=== PATIENT | male | born 1955 | race Caucasian/White ===

== ENCOUNTER 2016-09-20 15:46 | Observation (INO) | payer OTHER ==
--- NOTE | ~2016-09-20 | HP ---
Unit #: [id number] #: [id number] Patient: GIOVANY ESTEVES [id number] [facility]. [address] [address] [id number] I MR#: [id number] NAME: GIOVANY ESTEVES. ROOM: 571 Age: 61 Sex: M Admission Date: 09/20/2016 : 1955 Attending Physician: Gustavo Vargas M.D. Primary Care Physician: Juni Hernandez M.D. HISTORY AND PHYSICAL HISTORY OF PRESENT ILLNESS This is a 61-year-old white male who has a history of non-ST elevation myocardial infarction in 2014 where he underwent angioplasty with drug-eluting stents to the distal right coronary artery and left circumflex artery. He is known to have hypertension and hyperlipidemia. He presents to the emergency room with the complaints of chest pain that started two nights ago. He has substernal chest pressure with occasional radiation to his left hand with numbness. He has no associated diaphoresis, nausea or vomiting. His chest pressure occurs intermittently, lasting for 5 to 10 minutes in duration. There are no alleviating or aggravating factors. Chest pain is dissimilar from what he experienced at the time of his myocardial infarction. At that time the chest pressure radiated into his neck, into his elbows. In the emergency room initial troponin is negative. His EKG shows no acute ischemic changes. PAST MEDICAL HISTORY 1. Non-ST elevation myocardial infarction and status post cardiac catheterization 12/27/2014 which shows ejection fraction of 55%. Left main normal. First diagonal branch 30% to 40% stenosis. Proximal circumflex artery 75%. Marginal branch 75%. Second marginal branch 95%. Right coronary artery with 99% stenosis. 2. Status post angioplasty with drug-eluting stent to the distal right coronary artery and left circumflex artery. 3. Hypertension. 4. Hyperlipidemia. 5. Anxiety. 6. BPH with history of hematuria, status post TURP. PAST SURGICAL HISTORY 1. TURP in 2013. 2. Skin cancer excision. 3. Tonsillectomy. 4. Repair of left femoral fracture. SOCIAL HISTORY The patient is single and lives at home alone. 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 He has never smoked. He denies illicit drug and alcohol use. FAMILY HISTORY Father had a myocardial infarction in his 50s but later from lung cancer. Unit #: [id number] #: [id number] Patient: GIOVANY ESTEVES ALLERGIES No known drug allergies. HOME MEDICATIONS 1. Proscar 5 mg daily. 2. Plavix 75 mg daily. 3. Metoprolol tartrate 12.5 mg b.i.d. 4. Bactrim DS 800/160 mg that began on 09/16/2016. 5. Lipitor 80 mg daily. 6. Bupropion HCl 150 mg b.i.d. REVIEW OF SYSTEMS CONSTITUTIONAL: Negative for fever or chills. Reports no weight gain or weight loss. HEENT: No headache, hearing or vision changes or difficulty with swallowing. Negative for dizziness. CARDIOVASCULAR: Has chest pressure described in the HPI. Reports occasional palpitations. No paroxysmal nocturnal dyspnea or orthopnea. No syncope or near syncope. RESPIRATORY: Negative for dyspnea, cough or hemoptysis. GASTROINTESTINAL: No abdominal pain, nausea or vomiting. No constipation or melena. EXTREMITIES: Negative for lower extremity edema. PHYSICAL EXAMINATION VITAL SIGNS: Blood pressure 145/100, heart rate 74, temperature 98.3. GENERAL: This is a pleasant, 61-year-old, well-developed, middle-aged white male who is in no acute distress. NEUROLOGICAL: He is awake, alert and oriented. There are no focal weaknesses. NECK: Trachea is midline. No thyromegaly. No lymphadenopathy. No jugular venous distention. HEART: S1 and S2 heart sounds are normal. No murmurs, rubs or clicks. Regular rate and rhythm. LUNGS: Clear to auscultation without rales, rhonchi or wheezes. ABDOMEN: Soft, nontender, with bowel sounds present. EXTREMITIES: Without leg edema. SKIN: Warm and dry. DIAGNOSTIC STUDIES LABORATORY: Hemoglobin 14.5, hematocrit 43.2, platelet count 455, white count 10.2, sodium 138, potassium 3.9, BUN 12, creatinine 1.4, glucose 95, troponin less than 0.05 x2. IMAGING: Chest x-ray shows no active disease. CARDIOVASCULAR: EKG shows normal sinus rhythm with no acute ischemic changes. IMPRESSION 1. Chest pain, rule out myocardial infarction. 2. Hypertension. 3. Hyperlipidemia. 4. History of non-ST elevation myocardial infarction 12/2014 status post percutaneous coronary intervention with drug-eluting stent to the distal right coronary artery and circumflex artery. Unit #: [id number] #: [id number] Patient: GIOVANY ESTEVES PLAN 1. Will continue to trend cardiac enzymes and troponin to rule out myocardial infarction. 2. Anticoagulate with aspirin, Plavix and Lovenox. 3. Start on nitrates and continue beta urbano and statin. 4. If troponin is negative will proceed with exercise Cardiolite stress test in the a.m. 5. If stress test is normal the patient will be discharged home. Dictated by Ajit LouisPLizRLizNiLz for Edith Gallo/katheryn TD: 09/20/2016 22:26 JOB #: [id number] HISTORY AND PHYSICAL Page 1 of 1 X Mundo Claudio APRN X HISTORY AND PHYSICAL
--- NOTE | ~2016-09-20 | DS ---
Unit #: [id number] #: [id number] Patient: GIOVANY ESTEVES [id number] [facility]. [address] [address] [id number] I MR#: [id number] NAME: GIOVANY ESTEVES. ROOM: 571 Age: 61 Sex: M Admission Date: 09/20/2016 : 1955 Discharge Date: Attending Physician: Gustavo Vargas M.D. Primary Care Physician: Juni Hernandez M.D. DISCHARGE SUMMARY SHORT-STAY SUMMARY HISTORY OF PRESENT ILLNESS This is a 61-year-old white male who has a history of non-ST elevation myocardial infarction in 2014 where he underwent angioplasty with drug-eluting stents to the distal right coronary artery and left circumflex artery. He is known to have hypertension and hyperlipidemia. He presents to the emergency room with the complaints of chest pain that started two nights ago. He has substernal chest pressure with occasional radiation to his left hand with numbness. He has no associated diaphoresis, nausea or vomiting. His chest pressure occurs intermittently, lasting for 5 to 10 minutes in duration. There are no alleviating or aggravating factors. Chest pain is dissimilar from what he experienced at the time of his myocardial infarction. At that time the chest pressure radiated into his neck, into his elbows. In the emergency room initial troponin is negative. His EKG shows no acute ischemic changes. PAST MEDICAL HISTORY 1. Non-ST elevation myocardial infarction and status post cardiac catheterization 12/27/2014 which shows ejection fraction of 55%. Left main normal. First diagonal branch 30% to 40% stenosis. Proximal circumflex artery 75%. Marginal branch 75%. Second marginal branch 95%. Right coronary artery with 99% stenosis. 2. Status post angioplasty with drug-eluting stent to the distal right coronary artery and left circumflex artery. 3. Hypertension. 4. Hyperlipidemia. 5. Anxiety. 6. BPH with history of hematuria, status post TURP. PAST SURGICAL HISTORY 1. TURP in 2013. 2. Skin cancer excision. 3. Tonsillectomy. 4. Repair of left femoral fracture. SOCIAL HISTORY The patient is single and lives at home alone. 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 He has never smoked. He denies illicit drug and alcohol use. FAMILY HISTORY Unit #: [id number] #: [id number] Patient: GIOVANY ESTEVES Father had a myocardial infarction in his 50s but later from lung cancer. ALLERGIES No known drug allergies. HOME MEDICATIONS 1. Proscar 5 mg daily. 2. Plavix 75 mg daily. 3. Metoprolol tartrate 12.5 mg b.i.d. 4. Bactrim DS 800/160 mg that began on 09/16/2016. 5. Lipitor 80 mg daily. 6. Bupropion HCl 150 mg b.i.d. REVIEW OF SYSTEMS CONSTITUTIONAL: Negative for fever or chills. Reports no weight gain or weight loss. HEENT: No headache, hearing or vision changes or difficulty with swallowing. Negative for dizziness. CARDIOVASCULAR: Has chest pressure described in the HPI. Reports occasional palpitations. No paroxysmal nocturnal dyspnea or orthopnea. No syncope or near syncope. RESPIRATORY: Negative for dyspnea, cough or hemoptysis. GASTROINTESTINAL: No abdominal pain, nausea or vomiting. No constipation or melena. EXTREMITIES: Negative for lower extremity edema. PHYSICAL EXAMINATION VITAL SIGNS: Blood pressure 145/100, heart rate 74, temperature 98.3. GENERAL: This is a pleasant, 61-year-old, well-developed, middle-aged white male who is in no acute distress. NEUROLOGICAL: He is awake, alert and oriented. There are no focal weaknesses. NECK: Trachea is midline. No thyromegaly. No lymphadenopathy. No jugular venous distention. HEART: S1 and S2 heart sounds are normal. No murmurs, rubs or clicks. Regular rate and rhythm. LUNGS: Clear to auscultation without rales, rhonchi or wheezes. ABDOMEN: Soft, nontender, with bowel sounds present. EXTREMITIES: Without leg edema. SKIN: Warm and dry. DIAGNOSTIC STUDIES LABORATORY: Hemoglobin 14.5, hematocrit 43.2, platelet count 455, white count 10.2, sodium 138, potassium 3.9, BUN 12, creatinine 1.4, glucose 95, troponin less than 0.05 x2. IMAGING: Chest x-ray shows no active disease. CARDIOVASCULAR: EKG shows normal sinus rhythm with no acute ischemic changes. IMPRESSION 1. Chest pain, rule out myocardial infarction. 2. Hypertension. 3. Hyperlipidemia. 4. History of non-ST elevation myocardial infarction 12/2014 status post percutaneous coronary intervention with drug-eluting stent to the Unit #: [id number] #: [id number] Patient: GIOVANY ESTEVES distal right coronary artery and circumflex artery. PLAN 1. Will continue to trend cardiac enzymes and troponin to rule out myocardial infarction. 2. Anticoagulate with aspirin, Plavix and Lovenox. 3. Start on nitrates and continue beta urbano and statin. 4. If troponin is negative will proceed with exercise Cardiolite stress test in the a.m. 5. If stress test is normal the patient will be discharged home. HOSPITAL COURSE The patient was admitted overnight for chest pain. He ruled out for myocardial infarction. He was taken for an exercise Cardiolite stress test on 09/21/2016. Nuclear images revealed no ischemia. He did have significant shortness of breath during exercise but did not develop hypoxia. Shortness of breath resolved at rest. A CTA of the chest was completed and was negative for pulmonary embolus. There was some mild emphysema noted. The patient has had no further episodes of chest pain. His topical nitrates have been discontinued. There was some gas pattern on his CTA of the chest and he will be started on Protonix. He would benefit from dietary restrictions to see if symptoms improve. DISPOSITION He is stable and will be discharged home today. FOLLOWUP He is instructed to followup with his primary care provider as well as Dr. Camilo on Tuesday, November 08, 2016 at 1:00 p.m. MEDICATIONS Prescriptions have provided for Protonix as well as sublingual nitroglycerin. JOB #: [id number] Dictated by... Sammie Shore APRN for Edith Gallo/katheryn TD: 09/21/2016 15:06 JOB #: [id number] Unit #: [id number] #: [id number] Patient: GIOVANY ESTEVES DISCHARGE SUMMARY Page 1 of 1 X X DISCHARGE SUMMARY
--- NOTE | ~2016-09-20 | ST ---
Unit #: [id number] #: [id number] Patient: GIOVANY ESTEVES [id number] [facility]. [address] [address] [id number] I MR#: [id number] NAME: GIOVANY ESTEVES : 1955 SEX: M STUDY DATE/TIME: 09/21/2016 UNIT: [facility] ROOM: 571 STUDY DESCRIPTION: Exercise stress test Attending Physician: Gustavo Vargas M.D. Primary Care Physician: Juni Hernandez M.D. CARDIOLOGY REPORT PROCEDURE PERFORMED EKG portion of exercise Cardiolite stress test. REASON FOR EXAM Chest pain. DISCUSSION Baseline EKG reveals sinus rhythm with a ventricular rate of 78 beats per minute. Nonspecific ST-T wave changes noted in the lateral leads. The patient exercised on the treadmill according to the Nelson protocol for 7 minutes and 7 seconds achieving a workload of 7.5 METS. The maximal heart rate was 137 beats per minute, which represents 86% of the maximal age-predicted heart rate. Maximal blood pressure was 150/106 mmHg. Blood pressure improved in recovery to 141/93 mmHg. There were no complaints of chest pain. There were no sustained arrhythmias noted. There were no ST or T wave changes to suggest ischemia. The protocol was slightly modified due to significant shortness of breath. IMPRESSION 1. Negative EKG portion of exercise Cardiolite stress test. 2. There were no complaints of chest pain. 3. There were no sustained arrhythmias noted. 4. There were no ST or T wave changes to suggest ischemia. 5. Patient had significant shortness of breath during exercise, and the protocol was modified. If ischemia is ruled out, the patient should be considered for pulmonary causes of his symptoms. Dictated by... Sammie Shore APRN for Edith Gallo/frantz TD: 09/21/2016 14:56 JOB #: [id number] Unit #: [id number] #: [id number] Patient: GIOVANY ESTEVES CARDIOLOGY REPORT Page 1 of 1 X CARDIOLOGY REPORT
--- NOTE | ~2016-09-20 | TH ---
Unit #: [id number] #: [id number] Patient: [facility]EV[facility] [id number] [facility] [address] [address] [id number] I MR#: [id number] NAME: GIOVANY ESTEVES : 1955 SEX: M STUDY DATE/TIME: 09/21/2016 UNIT: [facility] ROOM: 571 STUDY DESCRIPTION: Cardiolite imaging. Attending Physician: Gustavo Vargas M.D. Primary Care Physician: Juni Hernandez M.D. CARDIOLOGY REPORT EXAM Cardiolite imaging. PROCEDURE Using technetium 99m labeled Cardiolite rest and SPECT images were obtained. Multiple SPECT images were obtained in various views, including horizontal and vertical long axis and short axis views of the left ventricle. Images were obtained by gated SPECT method. The patient was administered 11.97 mCi of Cardiolite at rest. The patient was administered 35.2 mCi of Cardiolite at peak exercise. Total exercise time was 7 minutes 7 seconds. On the stress images there is normal perfusion noted. The rest images show normal perfusion. Comparing rest and stress images there is no stress induced ischemia noted. The left ventricular ejection fraction was calculated to be 58%. There is no focal wall motion abnormality seen. CONCLUSION 1. No stress induced ischemia noted. 2. The left ventricular ejection fraction is calculated to be 58%. 3. There is no focal wall motion abnormality seen. 4. Normal nuclear portion of the stress test. 5. It must be noted that the patient has significant shortness of breath with exercise. Clinical correlation is requested. Dictated by... Edith Gallo TD: 09/21/2016 11:49 JOB #: [id number] CARDIOLOGY REPORT Page 1 of 1 X Marissa Camilo MD <ELECTRONICALLY SIGNED> 12/24/16 1429 CARDIOLOGY REPORT
--- NOTE | ~2016-09-20 | CT16 ---
[facility] A Service of [facility] RADIOLOGY TEXT RESULTS PATIENT: GOIVANY BUSTAMANTE LOCATION: [facility]06-05 : [birth year] UNIT #: [id number] AGE: [address]: Gustavo Vargas MD SEX: M ORDER DR: [id number] [facility] [address] [facility] [place], [place] [address] [id number] I MR#: [id number] Acc #: [id number] NAME: GIOVANY BUSTAMANTE : 1955 SEX: M STUDY DATE/TIME: 09/21/2016 13:17 UNIT: [facility] ROOM: [facility] STUDY DESCRIPTION: CT Angio Chest for PE Attending Physician: Gustavo Vargas M.D. Ordering Physician: Marissa Camilo M.D. Primary Care Physician: Juni Hernandez M.D. MEDICAL IMAGING REPORT This report is preliminary unless electronic signature is present EXAM CT of the chest with contrast PE protocol. INDICATIONS 61-year male with chest pain and shortness of breath since Monday night. TECHNIQUE CT of the chest was performed with contrast using the pulmonary embolism protocol. Coronal and sagittal reformatted images were obtained. This CT exam was performed with one or more of the following radiation dose reduction techniques: automatic exposure control, adjustment of mA and/or kV according to patient size, and iterative reconstruction. COMPARISON No comparisons. FINDINGS No evidence of pulmonary embolism. There is minimal emphysematous change. No airspace consolidation or suspicious pulmonary nodule. No lymphadenopathy or pleural effusion. Limited imaging of the upper abdomen is unremarkable. Bone windows demonstrate mid thoracic spine degenerative change. IMPRESSION 1. No evidence of pulmonary embolism. 2. Minimal emphysematous change. Dictated by... Augustine Bustamante M.D. THIS IS AN ELECTRONICALLY VERIFIED REPORT [facility] A Service [facility] RADIOLOGY TEXT RESULTS PATIENT: GIOVANY BUSTAMANTE LOCATION: [facility] : 55 UNIT #: [id number] AGE: [address]: Gustavo Vargas MD SEX: M ORDER DR: Augustine Bustamante M.D. at 09/22/2016 7:53 AM SRINATH/shirley TD: 09/21/2016 14:18 JOB #: [id number] MEDICAL IMAGING REPORT Page 1 of 1 COPY
--- NOTE | ~2016-09-20 | EKG ---
PATIENT: GIOVANY ESTEVES UNIT #: [id number] Ventricular Rate: 80 BPM Atrial Rate: 80 BPM P-R Interval: 150 ms QRS Duration: 78 ms Q-T Interval: 374 ms QTC Calculation(Bezet): 431 ms P Evant: -13 degrees Calculated R Evant: -16 degrees Calculated T Evant: 17 degrees Diagnosis Line: Normal sinus rhythm Diagnosis Line: Normal ECG Diagnosis Line: When compared with ECG of 09-JUN-2016 11:04, Diagnosis Line: Premature ventricular complexes are no longer Diagnosis Line: Present Diagnosis Line: Confirmed by KAUR BARRERA MD ([id number]) on 09/21/2016 Diagnosis Line: 7:15:07 PM INTERPRETING MD: HOLLY HOFFMAN
--- NOTE | ~2016-09-20 | CR72 ---
[facility] A Service of [facility] RADIOLOGY TEXT RESULTS PATIENT: GIOVANY ESTEVES LOCATION: [place] [address] : 55 UNIT #: [id number] AGE: [address]: Gustavo Vargas MD SEX: M ORDER DR: [id number] [facility] [address] [place], [place] [address] [id number] I MR#: [id number] #: [id number] NAME: GIOVANY ESTEVES. : 1955 SEX: M STUDY DATE/TIME: 09/20/2016 15:03 [facility] [address] STUDY DESCRIPTION: CR Chest Single View Portable Attending Physician: Gustavo Vargas M.D. Ordering Physician: Devon Hannon D.O. Primary Care Physician: Juni Hernandez M.D. MEDICAL IMAGING REPORT This report is preliminary unless electronic signature is present EXAM Portable chest. DATE OF EXAM 09/20/2016 INDICATION Chest pain, shortness of air that started today. COMPARISON 12/26/2014 FINDINGS A single AP view of the chest shows both lungs to be clear. The heart is normal in size. The mediastinal contour is normal. No significant bone abnormalities are seen. IMPRESSION Normal AP portable chest. Dictated by... Albaro Macdonald Jr., M.D. THIS IS AN ELECTRONICALLY VERIFIED REPORT Albaro Macdonald Jr., M.D. at 09/21/2016 7:53 AM EDUARDO/saul TD: 09/20/2016 17:29 JOB #: [id number] MEDICAL IMAGING REPORT Page 1 of 1 COPY
[2016-09-20 13:39] LABS: BASOPHIL# 0.1 X10e3 (0-0.3); BASOPHIL% 0.8 % (0-2.5); EOSINOPHIL# 0.1 X10e3 (0-0.7); EOSINOPHIL% 0.6 % (0.0-7.0); HEMATOCRIT 43.2 % (38.0-50.0); HEMOGLOBIN 14.5 gm/dL (13.0-16.0); LYMPHOCYTE# 1.7 X10e3 (1.0-3.5); MEAN CELL VOLUME 94.3 FL (83-96); MEAN CORPUSCULAR HEMOGLOBIN 31.6 PG (28-34); MEAN CORPUSCULAR HGB CONC 33.5 g/dL (30-36); MEAN PLATELET VOLUME 8.1 FL (6.5-11.5); MONOCYTE# 0.8 X10e3 (0-1.0); MONOCYTE% 7.8 % (3.0-12.0); NEUTROPHIL# 7.5 X10e3 (1.5-7.1); NEUTROPHIL% 73.8 % (40-75); PLATELET COUNT 455 X10e3 (140-420); RED BLOOD COUNT 4.58 X10e (3.90-5.60); RED CELL DISTRIBUTION WIDTH 13.5 % (11.0-15.5); WHITE BLOOD COUNT 10.2 X10e3 (4.0-10.5)
[2016-09-20 13:41] LABS: DIFF IND NO
[2016-09-20 14:02] LABS: ALBUMIN SERUM 4.2 g/dL (3.5-5.0); BILIRUBIN, DIRECT 0.2 mg/dL (0.0-0.2); BILIRUBIN,INDIRECT 0.7 mg/dL (0.0-0.9); BILIRUBIN,TOTAL 0.9 mg/dL (0.2-2.0); BUN/CREATININE RATIO 8.57; CALCIUM SERUM 9.3 mg/dL (8.4-10.2); CREATININE SERUM 1.4 mg/dL (0.6-1.4); GLOM FILT RATE Estimated 53.9 mL/min (>60); POTASSIUM 3.9 mmol/L (3.5-5.1); PROTEIN TOTAL SERUM 7.3 g/dL (6.0-8.3)
[2016-09-20 14:53] LABS: POC - CKMB 1.2 ng/mL (0.0-7.9); POC - TROPONIN <0.05 ng/mL (<=0.05)
[2016-09-20 15:24] LABS: POC - CKMB 1.2 ng/mL (0.0-7.9); POC - TROPONIN <0.05 ng/mL (<=0.05)
[~2016-09-20 15:46] MED LIST: ASPIRIN81 MG PO; BACTRIM DS TABL1 TAB PO; BENADRYL25 M3 PO; CIPRO PO; CLOPIDOGREL BIS75 MG PO; EFFIENT10 MG PO; FINASTERIDE5 M1 PO; FLOMAX0.4 M1 PO; FLOMAX0.4 MG PO; HYDROCODON-ACE1 EAC9 PO; KEFLEX500 M1 PO; LIPITOR PO; LIPITOR80 MG PO; LOPRESSOR PO; PERCOCET10 PO; PYRIDIUM PO; TYLENOL325 M1 PO
[2016-09-20] MEDS ORDERED: CLOPIDOGREL75 MG PO (16:48)
[2016-09-20] MEDS ORDERED: PROSCAR5 MG PO (16:48)
[2016-09-20] MEDS ORDERED: METOPROLOL TAR25 MG PO (16:49)
[2016-09-20] MEDS ORDERED: LIPITOR80 MG PO (16:50)
[2016-09-20] MEDS ORDERED: ZYBAN PO (16:50)
[2016-09-20] MEDS ORDERED: BACTRIM DS TAB1 EACH PO (16:50)
[2016-09-20 21:58] LABS: %MB 1.2 % (0.0-4.0); MB 1.8 ng/ml
[2016-09-20] MEDS ORDERED: ONE DAILY MULT1 EAC2 PO (22:16)
[2016-09-20] MEDS ORDERED: BENADRYL25 M3 PO (22:18)
[2016-09-20] MEDS ORDERED: ACETAMINOPHEN650 M4 PO (22:19)
[2016-09-21 03:47] LABS: BUN/CREATININE RATIO 15.45; CALCIUM SERUM 8.8 mg/dL (8.4-10.2); CREATININE SERUM 1.1 mg/dL (0.6-1.4); GLOM FILT RATE Estimated 72.1 mL/min (>60); POTASSIUM 4.3 mmol/L (3.5-5.1)
[2016-09-21 04:13] LABS: %MB 1.1 % (0.0-4.0); MB 1.7 ng/ml
[2016-09-21] MEDS ORDERED: BAYER CHEWABLE81 MG PO (13:57)
[2016-09-21] MEDS ORDERED: NITROGLYGERIN0.4 MG SL (15:06)
[2016-09-21] MEDS ORDERED: PROTONIX PO (15:07)
== END 2016-09-21 16:44 | disposition home or self-care (01) ==
LOC: CED 15:46 → CEDOF 15:47 → C5C 21:31
PROVIDERS: Emergency Medicine; Internal Medicine Cardiovascular Disease
DX: R07.89 Other chest pain (principal); I10 Essential (primary) hypertension; E78.5 Hyperlipidemia, unspecified; I25.2 Old myocardial infarction; Z95.5 Presence of coronary angioplasty implant and graft; Z79.82 Long term (current) use of aspirin; Z79.01 Long term (current) use of anticoagulants; Z79.02 Long term (current) use of antithrombotics/antiplatelets; F41.9 Anxiety disorder, unspecified; Z85.828 Personal history of other malignant neoplasm of skin; Z82.49 Family history of ischemic heart disease and other diseases of the circulatory system; Z80.1 Family history of malignant neoplasm of trachea, bronchus and lung; Z90.79 Acquired absence of other genital organ(s)
CPT/HCPCS: 36415; 71010; 71275; 78452; 80048; 80061; 80076; 82550; 82553; 84443; 84484; 85025; 93005; 93017; 96372; 99285; A9500; G0378; J1650; Q9967

== ENCOUNTER 2016-10-04 11:04 | Inpatient (IN) | payer OTHER ==
--- NOTE | ~2016-10-04 | HP ---
Unit #: [id number] #: [id number] Patient: GIOVANY ESTEVES [id number] [address] [address] [id number] E MR#: [id number] NAME: GIOVANY ESTEVES ROOM: Age: 61 Sex: M Admission Date: 10/04/2016 : 1955 Attending Physician: Emily Galindo M.D. Primary Care Physician: Juni Hernandez M.D. HISTORY AND PHYSICAL CHIEF COMPLAINT Abdominal pain. HISTORY OF PRESENT ILLNESS The patient is a 61-year-old male with history of coronary artery disease, hypertension, hyperlipidemia, brought to the emergency room with abdominal pain. The patient stated that the patient has been unable to move bowels since Monday. The patient has tried enemas and quart of prune juice but without any relief and just passing the gas. The patient had CT of the abdomen and pelvis that showed increased stomach and small bowel fluid and large bowel fluid nonspecific but could be seen with enterocolitis. No evidence of high-grade obstruction and no focal inflammatory process identified. A moderate amount of stool was noted in the right rectal vault consistent with history of constipation. The patient is being admitted for the above reasons. The patient also complains of nausea and vomiting and vomited x1 last night. The patient denies any over the counter pain killers. PAST MEDICAL HISTORY 1. History of non ST elevation [place], status post PCI with drug-eluting stent. 2. Hypertension. 3. Hyperlipidemia. 4. Anxiety. 5. BPH. PAST SURGICAL HISTORY 1. TURP. 2. Skin cancer excision. 3. Tonsillectomy. 4. Repair of left femoral fracture. SOCIAL HISTORY The patient is single and lives at home alone. 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 He was never a smoker. Denies any illicit drug and alcohol abuse. FAMILY HISTORY Positive for coronary artery disease. ALLERGIES No known drug allergies. HOME MEDICATIONS Unit #: [id number] #: [id number] Patient: GIOVANY ESTEVES 1. Proscar. 2. Plavix. 3. Metoprolol. 4. Lipitor. 5. Zyban. 6. Multivitamin. 7. Benadryl. 8. Aspirin. 9. Tylenol. 10. Nitroglycerin. 11. Protonix. REVIEW OF SYSTEMS A 14-point review of systems was performed and only pertinent positive findings are described above, remaining are negative. PHYSICAL EXAMINATION GENERAL: The patient is lying on a bed, not in acute distress. VITAL SIGNS: Temperature 98, pulse 93, respiratory rate 22, blood pressure 152/100, saturating 98% at room air. HEENT: Head: Atraumatic, normocephalic. Pupils equal, round, and reactive to light and accommodation. Extraocular movements are intact. NECK: Supple. No JVD. LUNGS: Decreased air entry at the bases. HEART: Regular rate and rhythm. ABDOMEN: Soft. Positive bowel sounds. Hyperactive. Generalized discomfort. EXTREMITIES: No cyanosis. No clubbing. NEUROLOGIC: Alert, awake, oriented. No gross focal motor deficit. ALLERGIES No known drug allergies. DIAGNOSTIC STUDIES LABORATORY: Glucose 139, BUN 15, creatinine 1, sodium 138, potassium 3.6, chloride 108, bicarbonate 17, calcium 9.3. Total protein 7.3, AST 20, ALT 23, alkaline phosphatase 74. Lipase 20. INR is 1. WBC 15.8, hemoglobin 15.9, hematocrit 48.4, platelets 439,000. Neutrophils 91.3. UA shows 1+ leukocyte esterase, 10-25 urine RBCs, and urine WBCs 25-50. IMAGING: CT of the abdomen and pelvis shows increased stomach and small bowel fluid and large bowel fluid nonspecific but could be seen with enterocolitis. No evidence of high-grade obstruction and no focal inflammatory process identified. The appendix is normal. A moderate amount of stool was noted in the right rectal vault consistent with history of constipation. Two lucent lesions in the right iliac bone. The large posterior lesion appears to have a fat suggesting lipoma. The smaller lesion near the iliac vein is indeterminate, probably is benign. However, clinical followup may be warranted. No definite lucent lesions are seen in the visualized spine. ASSESSMENT 1. Enterocolitis. 2. Constipation. 3. Hypertension. 4. Abdominal pain. PLAN Unit #: [id number] #: [id number] Patient: GIOVANY ESTEVES Plan to admit the patient to the inpatient with telemetry. Patient will have a GI evaluation for disimpaction of the stool and will put the patient on the empiric IV antibiotics with Rocephin and Flagyl for colitis and follow with the lactic acid (1) and initiate the sepsis protocol. If it is high, repeat the labs again in the morning and patient will be on a clear liquid diet. Further recommendations will follow. Dictated by Edith Miles TD: 10/04/2016 16:44 JOB #: [id number] HISTORY AND PHYSICAL Page 1 of 1 X X HISTORY AND PHYSICAL
--- NOTE | ~2016-10-04 | DS ---
Unit #: [id number] #: [id number] Patient: GIOVANY ESTEVES [id number] [address] [address] [id number] MR#: [id number] NAME: GIOVANY ESTEVES ROOM: 318 Age: 61 Sex: M Admission Date: 10/04/2016 : 1955 Discharge Date: 10/07/2016 Attending Physician: Angeles Acosta M.D. Referring Physician: Ganesh Lu M.D. Primary Care Physician: Juni Hernandez M.D. DISCHARGE SUMMARY DISCHARGE DIAGNOSES 1. Acute enterocolitis. 2. Constipation. 3. Urinary retention with BPH. 4. Hypertension. 5. Less likely urinary tract infection. 6. Abdominal pain secondary to enterocolitis. 7. History of myocardial infarction, status post PCI and drug-eluting stent, on Plavix and aspirin. 8. Hyperlipidemia. 9. Anxiety. CONSULTANTS Dr. Sierra. PROCEDURES PERFORMED None. DIAGNOSTIC DATA LABORATORY: Sodium 141, potassium 4.2, creatinine 1.0, white blood cell count 1.4, hemoglobin 14.2, platelets 367, blood cultures staphylococcus species coagulase negative skin contamination. Urine cultures negative. Lactic acid 2.1. IMAGING: CAT scan of the abdomen and pelvis shows no evidence of high grade obstruction, moderate amount of stool present, increased stomach and small bowel fluid and large bowel fluid, nonspecific, could represent enterocolitis. Two lucent lesions in the right iliac bone. The larger posterior lesion appears to have fat, suggestive of lipoma. ALLERGIES No known drug allergies. DISCHARGE MEDICATIONS 1. Flomax 0.4 mg p.o. daily. 2. Tylenol 650 mg q.6 h. p.r.n. pain. 3. Bupropion 150 mg p.o. b.i.d. 4. Bentyl 50 mg at bedtime. 5. Lipitor 80 mg daily. 6. Metoprolol 12.5 mg p.o. b.i.d. 7. Colace 100 mg p.o. b.i.d. 8. MiraLAX 17 g daily. 9. Proscar 5 mg daily. 10. Multivitamin 1 tablet daily. Unit #: [id number] #: [id number] Patient: GIOVANY ESTEVES 11. Aspirin 81 mg daily. 12. Plavix 75 mg daily. 13. Protonix 40 mg daily. 14. Nitroglycerin 0.4 sublingual p.r.n. chest pain. 15. Flagyl 500 mg p.o. q.8 h. for 7 days. HOSPITAL COURSE The patient is a 61-year-old admitted because of abdominal pain. Acute enterocolitis: The patient was started on clear liquids. Dr. Sierra saw this patient. The patient was started on Rocephin and Flagyl. Currently the patient's pain is better. Tolerating diet okay. I am going to change to regular diet. The patient needs colonoscopy as an outpatient. Currently the patient is on Plavix, so he needs to be off Plavix. The patient will follow with Dr. Sierra for followup. Constipation: The patient received MiraLAX, Colace and Dulcolax. Currently better. The patient will have outpatient colonoscopy with Dr. Sierra. Urinary retention secondary to BPH: The patient was following with urologist as an outpatient. He is on Proscar. I added Flomax. Currently he is on Delgado catheter. I am going to check a voiding trial. If he cannot void, I am going to put the Delgado catheter and follow with Dr. Max as an outpatient. He might need cystoscopy, which has been scheduled. Abnormal urinalysis: Most likely secondary to hematuria. Less likely urinary tract infection. Hematuria: Most likely from Delgado catheter trauma. Follow up with urology as an outpatient. History of myocardial infarction: Continue with aspirin, Plavix and Lipitor. DIET The patient will have a regular diet. DISCHARGE CONDITION Discontinue Delgado catheter and have voiding trial before discharge. DISPOSITION The patient will be discharged home. FOLLOWUP 1. Follow up with Dr. Sierra in 10 days time for outpatient colonoscopy. 2. Follow up with Dr. Max in one to two weeks time for urinary retention. 1. Dictated by... Edith Patel TD: 10/07/2016 09:38 JOB #: [id number] Unit #: [id number] #: [id number] Patient: GIOVANY ESTEVES CC: Juni Hernandez M.D. DISCHARGE SUMMARY Page 1 of 1 X Angeles Acosta MD DISCHARGE SUMMARY
--- NOTE | ~2016-10-04 | CT2 ---
[facility]. [facility] A Service of [facility] & [facility] RADIOLOGY TEXT RESULTS PATIENT: GIOVANY BUSTAMANTE LOCATION: [facility] 318-01 : 55 UNIT #: [id number] AGE: [address]: Angeles Acosta MD SEX: M ORDER DR: [id number] [facility] [address] [place], [place] [address] [id number] MR#: [id number] Acc #: [id number] NAME: GIOVANY BUSTAMANTE : 1955 SEX: M STUDY DATE/TIME: 10/04/2016 14:21 UNIT: [facility] ROOM: STUDY DESCRIPTION: CT Abd and Pelv W Cont Attending Physician: Emily Galindo M.D. Ordering Physician: Emily Galindo M.D. Primary Care Physician: Juni Hernandez M.D. MEDICAL IMAGING REPORT This report is preliminary unless electronic signature is present EXAM CT abdomen and pelvis with contrast HISTORY Generalized abdominal pain for 4 days, constipation. The CT exam was performed with one or more of the following radiation dose reduction techniques: automatic exposure control, adjustment of mA and/or kV according to patient size, and iterative reconstruction. Axial images performed through the abdomen and pelvis following IV contrast. Multiplanar reconstructed images reviewed at a workstation. Abdomen: Lung bases unremarkable. Liver, spleen, gallbladder, pancreas and adrenal glands unremarkable. The kidneys demonstrate some areas of nonenhancement probably represent small cyst. No stone or obstruction. Stomach is partially distended with fluid. There is increased small and large bowel fluid nonspecific but may be seen with enteritis. There is increased colonic stool particularly in the rectal vault. No focal inflammatory changes. No focal obstruction. Retroperitoneum unremarkable. The appendix is normal. Pelvis: Prostate is enlarged. Osseous structures unremarkable. Surgical chip clips in the left lower quadrant suggest prior hernia repair. There is a lucent lesion within the right iliac bone which appears to contain fat suggesting a lipoma. A second small lucent lesion seen in the right iliac bone and is indeterminate. Differential would include both benign as well as a malignant process sees. IMPRESSION [facility] A Service of [facility] & [facility] RADIOLOGY TEXT RESULTS PATIENT: GIOVANY BUSTAMANTE LOCATION: [facility] 318-01 : 55 UNIT #: [id number] AGE: [address]: Angeles Acosta MD SEX: M ORDER DR: 1. Increased stomach and small bowel fluid and large bowel fluid nonspecific but could be seen with enterocolitis. No evidence of high-grade obstruction and no focal inflammatory process identified. The appendix is normal. Moderate amount of stool was noted in the right rectal vault consistent with a history of constipation. Questionable fullness in the region of the rectal canal but I suspect this is normal. Correlate with physical findings. 2. 2 lucent lesions in the right iliac bone. The larger posterior lesion appears to have fat suggests a lipoma. The smaller lesion near the iliac wing is indeterminate probably is benign, however clinical followup may be warranted. No other definite lucent lesions are seen in the visualized spine. Dictated by... Cher Bustamante M.D. THIS IS AN ELECTRONICALLY VERIFIED REPORT Cher Bustamante M.D. at 10/05/2016 7:33 AM Pamela TD: 10/04/2016 15:22 JOB #: [id number] MEDICAL IMAGING REPORT Page 1 of 1 COPY
[~2016-10-04 11:04] MED LIST changes: +ACETAMINOPHEN650 M4 PO; +BACTRIM DS TAB1 EACH PO; +BAYER CHEWABLE81 MG PO; +CLOPIDOGREL75 MG PO; +METOPROLOL TAR25 MG PO; +NITROGLYGERIN0.4 MG SL; +ONE DAILY MULT1 EAC2 PO; +PROSCAR5 MG PO; +PROTONIX PO; +ZYBAN PO
[2016-10-04 12:09] LABS: BASOPHIL# 0.1 X10e3 (0-0.3); BASOPHIL% 0.3 % (0-2.5); EOSINOPHIL% 0.3 % (0.0-7.0); HEMATOCRIT 48.4 % (38.0-50.0); HEMOGLOBIN 15.9 gm/dL (13.0-16.0); LYMPHOCYTE# 0.8 X10e3 (1.0-3.5); LYMPHOCYTE% 5.2 % (17.0-45.0); MEAN CELL VOLUME 95.1 FL (83-96); MEAN CORPUSCULAR HEMOGLOBIN 31.2 PG (28-34); MEAN CORPUSCULAR HGB CONC 32.9 g/dL (30-36); MEAN PLATELET VOLUME 8.7 FL (6.5-11.5); MONOCYTE# 0.5 X10e3 (0-1.0); MONOCYTE% 2.9 % (3.0-12.0); NEUTROPHIL# 14.4 X10e3 (1.5-7.1); NEUTROPHIL% 91.3 % (40-75); PLATELET COUNT 439 X10e3 (140-420); RED CELL DISTRIBUTION WIDTH 13.6 % (11.0-15.5); WHITE BLOOD COUNT 15.8 X10e3 (4.0-10.5)
[2016-10-04 12:10] LABS: DIFF IND YES
[2016-10-04 12:31] LABS: PLATELET ESTIMATE NORMAL (NORMAL); RBC NORMAL YES
[2016-10-04 12:52] LABS: ALBUMIN SERUM 4.4 g/dL (3.5-5.0); BILIRUBIN, DIRECT 0.2 mg/dL (0.0-0.2); BILIRUBIN,INDIRECT 0.9 mg/dL (0.0-0.9); BILIRUBIN,TOTAL 1.1 mg/dL (0.2-2.0); BUN/CREATININE RATIO 12.5; CALCIUM SERUM 9.3 mg/dL (8.4-10.2); CREATININE SERUM 1.2 mg/dL (0.6-1.4); GLOM FILT RATE Estimated 64.9 mL/min (>60); POTASSIUM 3.6 mmol/L (3.5-5.1); PROTEIN TOTAL SERUM 7.3 g/dL (6.0-8.3)
[2016-10-04 14:01] LABS: URINE SOURCE CLEAN CATCH
[2016-10-04 14:09] LABS: URINE APPEARANCE CLOUDY; URINE BLOOD TRACE (NEG); URINE COLOR DK YELLOW; URINE GLUCOSE NEG (NEG); URINE KETONE TRACE (NEG); URINE LEUKOCYTE ESTERASE 1+ (NEG); URINE NITRATE NEG (NEG); URINE PROTEIN TRACE (NEG); URINE SPECIFIC GRAVITY 1.027 (1.003-1.035)
[2016-10-04 14:12] LABS: CULTURE INDICATED? YES; URINE BACTERIA AUWI NEG (NEGATIVE); URINE SQUAMOUS EPITHELIAL CELL NONE SEEN /[HPF]; UWBCS1 AUWI 25-50 (0-5)
[2016-10-04 14:14] LABS: URINE BILIRUBIN NEG (NEG)
[2016-10-04 14:27] LABS: URINE CRYSTALS CALCIUM OXALATE /[HPF]
[2016-10-05 06:15] LABS: HEMATOCRIT 40.1 % (38.0-50.0); MEAN CELL VOLUME 94.4 FL (83-96); MEAN CORPUSCULAR HEMOGLOBIN 31.6 PG (28-34); MEAN CORPUSCULAR HGB CONC 33.5 g/dL (30-36); MEAN PLATELET VOLUME 8.4 FL (6.5-11.5); RED BLOOD COUNT 4.25 X10e (3.90-5.60); RED CELL DISTRIBUTION WIDTH 13.6 % (11.0-15.5); WHITE BLOOD COUNT 10.2 X10e3 (4.0-10.5)
[2016-10-05 06:21] LABS: HEMOGLOBIN 13.4 gm/dL (13.0-16.0)
[2016-10-05 06:42] LABS: BUN/CREATININE RATIO 7.77; CALCIUM SERUM 8.5 mg/dL (8.4-10.2); CREATININE SERUM 0.9 mg/dL (0.6-1.4); GLOM FILT RATE Estimated 91.9 mL/min (>60); POTASSIUM 3.9 mmol/L (3.5-5.1)
[2016-10-06 05:46] LABS: HEMATOCRIT 41.7 % (38.0-50.0); HEMOGLOBIN 13.9 gm/dL (13.0-16.0); MEAN CELL VOLUME 94.6 FL (83-96); MEAN CORPUSCULAR HEMOGLOBIN 31.5 PG (28-34); MEAN CORPUSCULAR HGB CONC 33.3 g/dL (30-36); MEAN PLATELET VOLUME 8.5 FL (6.5-11.5); RED BLOOD COUNT 4.41 X10e (3.90-5.60); RED CELL DISTRIBUTION WIDTH 13.8 % (11.0-15.5); WHITE BLOOD COUNT 9.1 X10e3 (4.0-10.5)
[2016-10-06 07:14] LABS: ALBUMIN SERUM 3.5 g/dL (3.5-5.0); BUN/CREATININE RATIO 6.66; CALCIUM SERUM 8.7 mg/dL (8.4-10.2); CREATININE SERUM 0.9 mg/dL (0.6-1.4); GLOM FILT RATE Estimated 91.9 mL/min (>60); POTASSIUM 3.9 mmol/L (3.5-5.1); PROTEIN TOTAL SERUM 5.9 g/dL (6.0-8.3)
[2016-10-07 05:54] LABS: HEMATOCRIT 42.8 % (38.0-50.0); HEMOGLOBIN 14.2 gm/dL (13.0-16.0); MEAN CELL VOLUME 94.3 FL (83-96); MEAN CORPUSCULAR HEMOGLOBIN 31.3 PG (28-34); MEAN CORPUSCULAR HGB CONC 33.2 g/dL (30-36); RED BLOOD COUNT 4.54 X10e (3.90-5.60); RED CELL DISTRIBUTION WIDTH 13.3 % (11.0-15.5); WHITE BLOOD COUNT 7.4 X10e3 (4.0-10.5)
[2016-10-07 06:59] LABS: CALCIUM SERUM 8.9 mg/dL (8.4-10.2); GLOM FILT RATE Estimated 80.9 mL/min (>60); POTASSIUM 4.2 mmol/L (3.5-5.1)
[2016-10-07] MEDS ORDERED: FLOMAX0.4 M1 PO (09:11)
[2016-10-07] MEDS ORDERED: DOCUSATE SODIU100 MG PO (09:11)
[2016-10-07] MEDS ORDERED: MIRALAX17 GM PO (09:12)
[2016-10-07] MEDS ORDERED: FLAGYL PO (09:15)
== END 2016-10-07 13:02 | disposition home or self-care (01) | DRG 392 ==
LOC: CED 11:04 → CEDOF 16:11 → C3A PCU 17:59
PROVIDERS: Emergency Medicine; Internal Medicine
DX: K52.9 Noninfective gastroenteritis and colitis, unspecified (principal); I10 Essential (primary) hypertension; K59.00 Constipation, unspecified; N40.1 Benign prostatic hyperplasia with lower urinary tract symptoms; R33.8 Other retention of urine; I25.2 Old myocardial infarction; E78.5 Hyperlipidemia, unspecified; F41.9 Anxiety disorder, unspecified; Z95.5 Presence of coronary angioplasty implant and graft; I25.10 Atherosclerotic heart disease of native coronary artery without angina pectoris; Z79.82 Long term (current) use of aspirin; R31.9 Hematuria, unspecified
CPT/HCPCS: 36415; 74177; 80048; 80053; 80076; 81003; 83605; 83690; 85025; 85027; 87040; 87086; 94760; 96361; 96374; 96375; 99285; J0696; J1170; J1650; J2405; Q9967

== ENCOUNTER 2016-11-03 17:02 | Emergency (ER) | payer OTHER ==
[~2016-11-03 17:02] MED LIST changes: +DOCUSATE SODIU100 MG PO; +FLAGYL PO; +MIRALAX17 GM PO
== END 2016-11-03 19:06 | disposition home or self-care (01) ==
LOC: CFTX 17:02 → CED 17:02 → CFTX 18:34
DX: S61.211A Laceration without foreign body of left index finger without damage to nail, initial encounter (principal); Z23 Encounter for immunization; Z79.899 Other long term (current) drug therapy; W45.8XXA Other foreign body or object entering through skin, initial encounter; Y92.9 Unspecified place or not applicable
CPT/HCPCS: 12001; 90471; 90715; 99283

== ENCOUNTER 2016-11-27 04:36 | Emergency (ER) | payer OTHER ==
--- NOTE | ~2016-11-27 | CT4 ---
[facility] A Service of [facility] RADIOLOGY TEXT RESULTS PATIENT: GIOVANY ESTEVES LOCATION: [facility] : 55 UNIT #: [id number] AGE: [address]: Tank Orantes MD SEX: M ORDER DR: [id number] [facility] [address] [place], [place] [address] [id number] MR#: [id number] Acc #: [id number] NAME: GIOVANY ESTEVES. : 1955 SEX: M STUDY DATE/TIME: 11/27/2016 5:25 UNIT: [facility] ROOM: STUDY DESCRIPTION: CT Abd and Pelv Wo Cont Attending Physician: Tank Orantes M.D. Ordering Physician: Hair Cedeno M.D. Primary Care Physician: Juni Hernandez M.D. MEDICAL IMAGING REPORT This report is preliminary unless electronic signature is present EXAM CT abdomen and pelvis without contrast INDICATION Lower pelvic pain for the past day. Inability to urinate for the past day. PROCEDURE Unenhanced CT abdomen. This CT exam was performed with one or more of the following radiation dose reduction techniques: automatic exposure control, adjustment of mA and/or kV according to patient size, and iterative reconstruction. COMPARISON 10/04/2016 FINDINGS ABDOMEN WITHOUT CONTRAST: Included lung bases clear. Liver, spleen, kidneys, adrenal glands, pancreas, gallbladder unremarkable. Bowel loops are nondilated. Moderate colonic stool burden. Appendix is nondilated. PELVIS WITHOUT CONTRAST: Delgado catheter decompresses the bladder. Prostate enlarged measuring 5.6 cm. A few small lucent lesions in the right hemipelvis are unchanged from the prior, nonspecific. IMPRESSION 1. Prostatomegaly. 2. Bladder decompressed by a Delgado catheter. 3. Moderate colonic stool burden. 4. A few small lucent lesions in the right hemipelvis are unchanged from the prior. [facility] A Service of [facility] RADIOLOGY TEXT RESULTS PATIENT: GIOVANY ESTEVES LOCATION: [facility] : 55 UNIT #: [id number] AGE: [address]: Tank Orantes MD SEX: M ORDER DR: Dictated by... Ruslan Odell M.D. THIS IS AN ELECTRONICALLY VERIFIED REPORT Ruslan Odell M.D. at 11/27/2016 10:24 PM Edmund TD: 11/27/2016 09:12 JOB #: [id number] MEDICAL IMAGING REPORT Page 1 of 1 COPY
[2016-11-27 05:39] LABS: BASOPHIL# 0.1 X10e3 (0-0.3); BASOPHIL% 0.5 % (0-2.5); EOSINOPHIL# 0.1 X10e3 (0-0.7); EOSINOPHIL% 0.6 % (0.0-7.0); HEMATOCRIT 44.3 % (38.0-50.0); HEMOGLOBIN 14.8 gm/dL (13.0-16.0); LYMPHOCYTE# 1.2 X10e3 (1.0-3.5); LYMPHOCYTE% 10.6 % (17.0-45.0); MEAN CELL VOLUME 93.9 FL (83-96); MEAN CORPUSCULAR HEMOGLOBIN 31.4 PG (28-34); MEAN CORPUSCULAR HGB CONC 33.4 g/dL (30-36); MEAN PLATELET VOLUME 8.6 FL (6.5-11.5); MONOCYTE# 0.5 X10e3 (0-1.0); NEUTROPHIL# 9.8 X10e3 (1.5-7.1); NEUTROPHIL% 84.3 % (40-75); PLATELET COUNT 473 X10e3 (140-420); RED BLOOD COUNT 4.72 X10e (3.90-5.60); RED CELL DISTRIBUTION WIDTH 13.5 % (11.0-15.5); WHITE BLOOD COUNT 11.6 X10e3 (4.0-10.5)
[2016-11-27 05:52] LABS: DIFF IND NO
[2016-11-27 06:20] LABS: ALBUMIN SERUM 4.2 g/dL (3.5-5.0); BILIRUBIN,TOTAL 1.5 mg/dL (0.2-2.0); BUN/CREATININE RATIO 12.5; CALCIUM SERUM 9.5 mg/dL (8.4-10.2); CREATININE SERUM 1.2 mg/dL (0.6-1.4); GLOM FILT RATE Estimated 64.9 mL/min (>60); POTASSIUM 3.7 mmol/L (3.5-5.1); PROTEIN TOTAL SERUM 7.1 g/dL (6.0-8.3)
== END 2016-11-27 07:27 | disposition home or self-care (01) ==
LOC: CED 04:36
PROVIDERS: Emergency Medicine
DX: R30.0 Dysuria (principal); Z79.899 Other long term (current) drug therapy
CPT/HCPCS: 36415; 51702; 74176; 80053; 85025; 96361; 96374; 99284; J1170